=== PATIENT | female | born 1940 | race Caucasian/White ===

== ENCOUNTER 2022-01-06 19:06 | Inpatient (IN) | payer MEDICARE ==
[~2022-01-06] VITALS: Ht 165.1 cm; Wt 110.3 kg
[2022-01-06 19:44] LABS: BASOPHIL 0.2 % (0-2); EOSINOPHIL 0.7 % (0-7); HCT 43.1 % (37.0-47.0); HGB 13.9 g/dl (12.5-16.0); LYMPHOCYTE 1.6 % (15-48); MCH 31.3 pg (25.0-31.0); MCHC 32.3 g/dL (32.0-36.0); MCV 97.1 fL (78.0-100.0); MONOCYTE 1.5 % (0-12); MPV 10.8 fL (6.0-9.5); NRBC 0; PLT 251 K/uL (150-400); RBC 4.44 M/uL (4.20-5.40); RDW 12.7 % (11.5-14.0); WBC 19.2 K/uL (4.0-10.5)
[2022-01-06 19:48] LABS: NEUTROPHIL 95.5 % (41-80)
[2022-01-06 19:52] LABS: LACTIC ACID 2.9 mmol/L (0.4-1.9)
[2022-01-06 20:03] LABS: ALBUMIN 3.3 g/dL (3.4-5.0); CREATININE 1.64 mg/dL (0.51-0.95); POTASSIUM 3.8 mmol/L (3.5-5.1); TOTAL PROTEIN 7.3 g/dL (6.4-8.2)
[2022-01-06 22:40] LABS: BILIRUBIN NEGATIVE (NEGATIVE); BLOOD TRACE-INTACT Ery/uL (NEGATIVE); CLARITY HAZY (CLEAR); COLOR YELLOW (YELLOW); GLUCOSE (U) NORMAL (NORMAL); LEUKOCYTES 3+ Leu/uL (NEGATIVE); NITRITE NEGATIVE (NEGATIVE); PROTEIN 2+ mg/dL (NEGATIVE); UROBILINOGEN 0.2 mg/dL (0.2-1.0); pH 5.5 (5.0-9.0)
[2022-01-06 22:56] LABS: URINARY WBC TNTC
[2022-01-06 22:57] LABS: BACTERIA 3+
[2022-01-07] MEDS ORDERED: NITROFURANTOIN100 M1 PO (03:38)
[2022-01-07] MEDS ORDERED: ALLOPURINOL 10100 MG PO (03:40)
[2022-01-07] MEDS ORDERED: ASPIRIN-DIPYRI1 EACH PO (03:41)
[2022-01-07] MEDS ORDERED: ELAVIL50 MG PO (03:43)
[2022-01-07] MEDS ORDERED: LEVOTHYROXINE100 MCG PO (04:38)
[2022-01-07] MEDS ORDERED: SIMVASTATIN40 MG PO (04:39)
[2022-01-07] MEDS ORDERED: METOPROLOL SUCC25 MG PO (04:41)
[2022-01-07] MEDS ORDERED: VICTOZA 3-0.6 MG/0.1 SC (05:20)
[2022-01-07] MEDS ORDERED: LISINOPRIL20 MG PO (05:21)
[2022-01-07] MEDS ORDERED: FERREX 150 FOR1 EACH PO (05:23)
[2022-01-07 06:24] LABS: HCT 37.4 % (37.0-47.0); HGB 12.1 g/dl (12.5-16.0); MCH 31.8 pg (25.0-31.0); MCHC 32.4 g/dL (32.0-36.0); MCV 98.2 fL (78.0-100.0); MPV 11.2 fL (6.0-9.5); RBC 3.81 M/uL (4.20-5.40)
[2022-01-07 06:30] LABS: WBC 20.2 K/uL (4.0-10.5)
[2022-01-07 08:38] LABS: BUN/CREAT RATIO (CALC) 15.7 RATIO; CREATININE 1.78 mg/dL (0.51-0.95); POTASSIUM 4.2 mmol/L (3.5-5.1)
[2022-01-07 09:46] LABS: FT4 (FREE T4) 1.19 ng/dL (0.76-1.46)
[2022-01-07 16:59] LABS: LACTIC ACID 1.1 mmol/L (0.4-1.9)
[2022-01-08 06:35] LABS: HCT 34.9 % (37.0-47.0); HGB 11.6 g/dl (12.5-16.0); MCH 32.4 pg (25.0-31.0); MCHC 33.2 g/dL (32.0-36.0); MCV 97.5 fL (78.0-100.0); MPV 11.1 fL (6.0-9.5); RBC 3.58 M/uL (4.20-5.40); RDW 12.9 % (11.5-14.0); WBC 6.6 K/uL (4.0-10.5)
[2022-01-08 07:11] LABS: BUN/CREAT RATIO (CALC) 20.3 RATIO; CREATININE 1.58 mg/dL (0.51-0.95); POTASSIUM 4.2 mmol/L (3.5-5.1)
[2022-01-09 02:10] LABS: BASOPHIL 0.4 % (0-2); EOSINOPHIL 9.2 % (0-7); HCT 35.8 % (37.0-47.0); HGB 11.7 g/dl (12.5-16.0); LYMPHOCYTE 21.8 % (15-48); MCH 31.5 pg (25.0-31.0); MCHC 32.7 g/dL (32.0-36.0); MCV 96.2 fL (78.0-100.0); MONOCYTE 6.7 % (0-12); MPV 10.7 fL (6.0-9.5); NEUTROPHIL 61.3 % (41-80); NRBC 0; PLT 210 K/uL (150-400); RBC 3.72 M/uL (4.20-5.40); RDW 12.9 % (11.5-14.0); WBC 5.2 K/uL (4.0-10.5)
[2022-01-09 02:31] LABS: BUN/CREAT RATIO (CALC) 22.4 RATIO; CREATININE 1.52 mg/dL (0.51-0.95); MAGNESIUM 1.8 mg/dL (1.8-2.4)
[2022-01-09 23:36] LABS: BILIRUBIN NEGATIVE (NEGATIVE); BLOOD NEGATIVE Ery/uL (NEGATIVE); CLARITY CLEAR (CLEAR); COLOR YELLOW (YELLOW); GLUCOSE (U) NORMAL (NORMAL); LEUKOCYTES NEGATIVE Leu/uL (NEGATIVE); NITRITE NEGATIVE (NEGATIVE); PROTEIN NEGATIVE (NEGATIVE); SPECIFIC GRAVITY <=1.005 (1.001-1.030); UROBILINOGEN 0.2 mg/dL (0.2-1.0)
[2022-01-09 23:44] LABS: URINARY WBC RARE
[2022-01-09 23:45] LABS: SQUAMOUS EPITHELIAL CELLS RARE; URINARY RBC RARE
--- NOTE | 2022-01-10 13:54 | NUR ---
SPOKE TO DTR ON MONDAY 01/08. SHE REFUSED THE NEED FOR HOME HEALHT AT THIS TIME
== END 2022-01-10 14:08 | disposition home health service (06) | DRG 872 ==
LOC: FER 19:06 → FMS 20:52
PROVIDERS: Emergency Medicine; Family Medicine; Nurse Practitioner Acute Care; ADMIT Internal Medicine
PROC: 3E03329 Introduction of Other Anti-infective into Peripheral Vein, Percutaneous Approach (ICD-10-PCS; 2022-01-06)
PROC: B24BZZZ Ultrasonography of Heart with Aorta (ICD-10-PCS; principal; 2022-01-08)
PROC: 5A09357 Assistance with Respiratory Ventilation, Less than 24 Consecutive Hours, Continuous Positive Airway Pressure (ICD-10-PCS; 2022-01-09)
DX: A41.9 Sepsis, unspecified organism (principal); I12.0 Hypertensive chronic kidney disease with stage 5 chronic kidney disease or end stage renal disease; N18.4 Chronic kidney disease, stage 4 (severe); N30.01 Acute cystitis with hematuria; N17.9 Acute kidney failure, unspecified; Z68.41 Body mass index [BMI] 40.0-44.9, adult; E87.2 Acidosis; Z66 Do not resuscitate; R65.20 Severe sepsis without septic shock; E11.22 Type 2 diabetes mellitus with diabetic chronic kidney disease; E89.0 Postprocedural hypothyroidism; E78.5 Hyperlipidemia, unspecified; G47.33 Obstructive sleep apnea (adult) (pediatric); I48.91 Unspecified atrial fibrillation; E11.40 Type 2 diabetes mellitus with diabetic neuropathy, unspecified; R01.1 Cardiac murmur, unspecified; L30.4 Erythema intertrigo; E66.01 Morbid (severe) obesity due to excess calories; M19.90 Unspecified osteoarthritis, unspecified site; F41.9 Anxiety disorder, unspecified; F32.9 Major depressive disorder, single episode, unspecified; N76.0 Acute vaginitis; Z90.49 Acquired absence of other specified parts of digestive tract; Z90.710 Acquired absence of both cervix and uterus; Z82.49 Family history of ischemic heart disease and other diseases of the circulatory system; Z88.0 Allergy status to penicillin; Z88.2 Allergy status to sulfonamides; Z88.5 Allergy status to narcotic agent; Z91.040 Latex allergy status; Z88.1 Allergy status to other antibiotic agents; Z88.8 Allergy status to other drugs, medicaments and biological substances; Z79.899 Other long term (current) drug therapy; Z85.42 Personal history of malignant neoplasm of other parts of uterus; Z85.51 Personal history of malignant neoplasm of bladder; Z86.73 Personal history of transient ischemic attack (TIA), and cerebral infarction without residual deficits; Z98.49 Cataract extraction status, unspecified eye; Z98.890 Other specified postprocedural states
CPT/HCPCS: 36415; 76770; 80048; 80053; 80202; 81001; 83036; 83605; 83735; 83880; 84439; 84443; 85025; 87040; 87077; 87088; 87186; 93005; 97116; 97162; J0692; J1650; J3370; J7030; J7040; J7120

== ENCOUNTER 2022-02-12 20:39 | Emergency (ER) | payer MEDICARE ==
[~2022-02-12 20:39] MED LIST: ALLOPURINOL 10100 MG PO; ASPIRIN-DIPYRI1 EACH PO; ELAVIL50 MG PO; FERREX 150 FOR1 EACH PO; LEVOTHYROXINE100 MCG PO; LISINOPRIL20 MG PO; METOPROLOL SUCC25 MG PO; NITROFURANTOIN100 M1 PO; SIMVASTATIN40 MG PO; VICTOZA 3-0.6 MG/0.1 SC
== END 2022-02-12 23:34 | disposition home or self-care (01) ==
LOC: FER 20:39
DX: S83.92XA Sprain of unspecified site of left knee, initial encounter (principal); E11.9 Type 2 diabetes mellitus without complications; I10 Essential (primary) hypertension; Z88.0 Allergy status to penicillin; Z88.1 Allergy status to other antibiotic agents; Z88.2 Allergy status to sulfonamides; Z88.5 Allergy status to narcotic agent; Z88.8 Allergy status to other drugs, medicaments and biological substances; Z91.040 Latex allergy status; X58.XXXA Exposure to other specified factors, initial encounter; Y93.89 Activity, other specified; Y92.009 Unspecified place in unspecified non-institutional (private) residence as the place of occurrence of the external cause
CPT/HCPCS: 73564